=== PATIENT | male | born 1960 | race Caucasian/White ===

== ENCOUNTER 2017-10-09 11:07 | Emergency (ER) | payer BC ==
[~2017-10-09] VITALS: Ht 190.5 cm; Wt 99.8 kg
[2017-10-09] MEDS ORDERED: HYDROMORPHONE INJ 0.5 MG/0.5 ML SYRINGE IV ONE (12:00)
[2017-10-09] MEDS ORDERED: HYDROMORPHONE INJ 2 MG/ML DISP.SYRIN ONE (12:02)
--- NOTE | 2017-10-09 14:10 | NUR ---
POST VOID RESIDUAL OF [id number]. MADE AWARE.
--- NOTE | 2017-10-09 14:15 | NUR ---
PAGED DR COLLIER.
[2017-10-09] MEDS ORDERED: oxyCODONE/APAP (5/325 MG) 1 UDTAB TABLET PO ONE (15:00)
--- NOTE | 2017-10-09 15:00 | NUR ---
CALL MRI TO F/U
[2017-10-09] MEDS ORDERED: oxyCODONE/APAP (5/325 MG) 1 UDTAB TABLET ONE (15:06)
--- NOTE | 2017-10-09 16:14 | NUR ---
TEXTED DR. HSIEH FOR MRI APPROVAL.
--- NOTE | 2017-10-09 17:31 | NUR ---
pt back from MRI
[2017-10-09 19:30] VITALS: BP 134/90
--- NOTE | 2017-10-09 20:00 | NUR ---
Patient does not wish to proceed with medical care recommended by Dr. Freeman. Patient given information related to possible complications, up to and including , which could occur as a result of leaving the hospital at this time. Patient verbalizes understanding of risks involved due to leaving against medical advice. Patient refused to sign.
--- NOTE | 2017-10-09 20:02 | NUR ---
IV removed. Catheter intact and site benign. Pressure and 4x4 applied to site. No bleeding noted.
== END 2017-10-09 20:09 | disposition left against medical advice (07) ==
LOC: ER 11:10
DX: M54.5 Low back pain (principal); R20.2 Paresthesia of skin; R33.9 Retention of urine, unspecified; Z90.89 Acquired absence of other organs; Z88.0 Allergy status to penicillin; W18.39XA Other fall on same level, initial encounter; Y93.02 Activity, running; Y92.091 Bathroom in other non-institutional residence as the place of occurrence of the external cause; Y99.8 Other external cause status
CPT/HCPCS: 72131; 72148; 96374; 99284; A4606; J1170; Z7610